=== PATIENT | male | born 1990 | race African-American/Black ===

== ENCOUNTER 2017-12-22 20:33 | Emergency (ER) | payer BC, OTHER ==
[~2017-12-22] VITALS: Ht 180.3 cm; Wt 93.0 kg
[2017-12-22 21:29] LABS: HEMATOCRIT 42.9 % (42.0-52.0); HEMOGLOBIN 14.2 gm/dL (14.0-18.0); MCH 27.1 pg (26.0-34.0); MCHC 33.1 g/dL (28.0-37.0); MCV 81.9 fL (80.0-100.0); PLATELET COUNT 234 thou/uL (150-400); RBC 5.24 mil/uL (4.50-6.00); RDW 12.4 % (10.5-14.5); WBC 4.1 thou/uL (4.0-11.0)
[2017-12-22 21:38] LABS: CALCIUM 9.2 mg/dL (8.5-10.1); CREATININE 1.1 mg/dL (0.7-1.3)
[2017-12-22 21:56] LABS: ABSOLUTE NEUTROPHILS 2.3 thou/uL (1.4-8.2)
[2017-12-22] MEDS ORDERED: CLEOCIN HCL150 MG PO (23:03)
[2017-12-22] MEDS ORDERED: NAPROSYN500 MG PO (23:03)
[2017-12-22] MEDS ORDERED: ULTRAM 50MG TAB50 MG PO (23:03)
[2017-12-22 23:38] VITALS: BP 125/63
== END 2017-12-22 23:40 | disposition home or self-care (01) ==
LOC: ER 20:33
PROVIDERS: Physician Assistant
DX: L02.01 Cutaneous abscess of face (principal); F17.210 Nicotine dependence, cigarettes, uncomplicated